=== PATIENT | female | born 1980 | race Caucasian/White ===

== ENCOUNTER 2025-02-23 15:48 | Emergency (ER) | payer OTHER ==
[~2025-02-23] VITALS: Ht 162.6 cm; Wt 113.4 kg
[2025-02-23 15:57] VITALS: BP 149/88
== END 2025-02-23 16:49 | disposition home or self-care (01) ==
LOC: ER 15:48
DX: R07.9 Chest pain, unspecified (principal)
CPT/HCPCS: 93005; 93010; 93246; 99284-25

== ENCOUNTER → 2025-02-23 | Outpatient (CLI) | payer OTHER ==
[~2025-02-23] MED LIST: DIAZ10 PO; DICY20 PO; HYDACE5 PO; PROM25 PO
[2025-02-23 12:37] LABS: BASOPHILS ABSOLUTE AUTO 0.07 K/mm3 (0.00-0.23); BASOPHILS PERCENT AUTO 1 % (0-2); EOSINOPHILS ABSOLUTE AUTO 0.26 K/mm3 (0.00-0.68); EOSINOPHILS PERCENT AUTO 3 % (0-6); Hematocrit 36.3 % (33.0-51.0); Hemoglobin 12.3 g/dL (11.5-16.0); IMMATURE GRAN ABSOLUTE AUTO 0.06 K/mm3 (0.00-0.10); IMMATURE GRAN PERCENT AUTO 1 % (0-1); LYMPHOCYTES ABSOLUTE AUTO 2.66 K/mm3 (0.84-5.20); LYMPHOCYTES PERCENT AUTO 30 % (21-46); MONOCYTES ABSOLUTE AUTO 0.49 K/mm3 (0.16-1.47); MONOCYTES PERCENT AUTO 6 % (4-13); Mean Corpuscular HGB 29.1 pg (26.0-34.0); Mean Corpuscular HGB Conc 33.9 g/dL (31.5-36.5); Mean Corpuscular Volume 86 fL (80-100); Mean Platelet Volume 11.5 fL (9.1-12.4); NEUTROPHILS ABSOLUTE AUTO 5.25 K/mm3 (1.96-9.15); NEUTROPHILS PERCENT AUTO 60 % (41-73); Platelet Count 267 K/mm3 (150-400); RDW Coefficient Variation 12.9 % (11.7-14.2); RDW Standard Deviation 39.8 fL (35.1-46.3); Red Blood Cell Count 4.22 M/mm3 (3.80-5.20); White Blood Cell Count 8.79 K/mm3 (4.00-11.30)
[2025-02-23 12:55] LABS: Albumin, Blood 4.2 g/dL (3.4-5.0); Albumin/Globulin Ratio 1.3 (0.8-1.8); Bilirubin, Total 0.2 mg/dL (0.1-1.0); Bun/Creatinine Ratio 19.7 (12.0-20.0); Calcium, Blood 9.5 mg/dL (8.5-10.1); Creatinine, Blood 0.66 mg/dL (0.40-1.00); Globulin, Blood 3.2 g/dL (2.2-4.0); Magnesium, Blood 1.9 mg/dL (1.6-2.4); Thyroid Stimulating Hormone 1.508 uIU/mL (0.360-4.800); Total Protein, Blood 7.4 g/dL (6.4-8.2)
== END | disposition home or self-care (01) ==
LOC: LAB 12:31 → LAB SHORT 12:31
PROVIDERS: Chiropractor
DX: R07.89 Other chest pain (principal); R53.83 Other fatigue
CPT/HCPCS: 80053; 83735; 84443; 84484; 85025; 85379

== ENCOUNTER 2025-09-29 07:29 | Day surgery (SDC) | payer OTHER | END 2025-09-29 23:00 | disposition home or self-care (01) | LOC: CT 07:29 | DX: R07.9 Chest pain, unspecified (principal) | CPT/HCPCS: 75574; Q9967 ==

== ENCOUNTER 2025-11-02 06:46 | Day surgery (SDC) | payer OTHER ==
[2025-11-02] VITALS (8 sets, daily range): BP systolic 119–143; BP diastolic 63–96
[~2025-11-02] VITALS: Ht 167.6 cm; Wt 103.0 kg
[2025-11-02] MEDS ORDERED: Verapamil HCL 2.5 MG/ML 2ML Injection ONE (07:22)
[2025-11-02] MEDS ORDERED: NS 1,000 ML IV ONE ×2 (07:22→07:28)
[2025-11-02] MEDS ORDERED: NS 250 ML IV ONE (07:22)
[2025-11-02] MEDS ORDERED: Nitroglycerin 2 MG/20 ML BTL ONE (07:22)
[2025-11-02] MEDS ORDERED: Heparin Sodium 1000 Units/ML 10ML MDV ONE ×2 (07:22→07:28)
[2025-11-02] MEDS ORDERED: Midazolam HCl 1MG / ML 2ML Vial ONE ×2 (07:41→08:02)
[2025-11-02] MEDS ORDERED: FentaNYL Citrate 50 MCG/ML 2 ML Injection ONE ×2 (07:41→08:31)
--- NOTE | 2025-11-02 09:15 | NUR ---
ASSUMED CARE OF PT. PT DROWSY, BUT CONVERSING APPROPRIATELY; DENIES CP POST PROCEDURE. MONITOR SB 50'S, B/P 128/63, SPO2 98% RA. R RADIAL SITE NO SWELLING/HEMATOMA, TR BAND INTACT; RUE: POSITIVE PLEUTH POST TR BAND PLACEMENT. PT TAKING FLUIDS WITHOUT ISSUE.
--- NOTE | 2025-11-02 10:35 | NUR ---
TR BAND FULLY DELFATED, R RADIAL NO S/S OF SWELLING/HEMATOMA.
--- NOTE | 2025-11-02 11:10 | NUR ---
PT AMB TO BATHROOM, GAIT STEADY, SITE UNCHANGED. PT DRESSED SELF WITHOUT PROBLEM. TR BAND REMOVED, CLOTH DOT AND WRIST IMMOBILIZER PLACED; IV REMOVED-CANNULA INTACT.
--- NOTE | 2025-11-02 11:19 | NUR ---
PT AND SPOUSE RECEIVED DISCHARGE INSTRUCTIONS, MED LIST AND AFTER CARE INSTRUCTIONS; VERBALIZED GOOD UNDERSTANDING. PT LEFT FACILITY VIA W/C, CONDITION STABLE.
== END 2025-11-02 11:19 | disposition home or self-care (01) ==
LOC: MHTC 06:46
DX: Q24.5 Malformation of coronary vessels (principal); Z91.030 Bee allergy status; Z87.891 Personal history of nicotine dependence
CPT/HCPCS: 76937; 93458; 93567; 99152; 99153; A9270; C1769; C1887; C1894; J1644; J2250; J3010; J7030; J7050; Q9967